=== PATIENT | female | born 1995 | race American Indian/Alaskan Native ===

== ENCOUNTER 2020-10-29 08:25 | Emergency (ER) | payer OTHER ==
--- NOTE | 2020-10-29 08:36 | Event Note ---
ED Screening Note ED Screening Note: 10 w preg vag bleeding- heavy abd cramps has no obgyn pos home preg test LMP 08/25 g2 This initial assessment/diagnostic orders/clinical plan/treatment(s) is/are subject to change based on patients health status, clinical progression and re- assessment by fellow clinical providers in the ED. Further treatment and workup at subsequent clinical providers discretion. Patient/guardian urged not to elope from the ED as their condition may be serious if not clinically assessed and managed. Initial orders include: ro ectopic/ab
[2020-10-29 09:07] VITALS: BP 126/56
--- NOTE | 2020-10-29 09:08 | Emergency Department Report ---
ED Female HPI - General Chief complaint: Vaginal Bleeding Stated complaint: VAGINAL BLEEDING; 9WKS Time Seen by Provider: 10/29/20 08:35 Source: patient Mode of arrival: Ambulatory Limitations: No Limitations - History of Present Illness Initial comments: SEE MSE NOTE 24 YO COMES TO ER APPROX 9 W PREG WITH VAG BLEED AND CRAMPING. NO CARE CURRENTLY SMOKING LMP 08/25 G2 VS STABLE IN TRIAGE. MD Complaint: vaginal bleeding -: Gradual, days(s) Worsens with: none Are you Now?: Yes Associated Symptoms: vaginal bleeding - Related Data Sexually active: Yes Allergies Allergy/AdvReac Type Severity Reaction Status Date / Time No Known Allergies Allergy Unverified 10/29/20 09:07 ED Review of Systems ROS: Stated complaint: VAGINAL BLEEDING; 9WKS Other details as noted in HPI Comment: All other systems reviewed and negative ED Past Medical Hx - Past Medical History Previous Medical History?: No - Surgical History Past Surgical History?: No - Family History Family history: no significant - Social History Smoking Status: Never Smoker Substance Use Type: None ED Physical Exam - General Limitations: No Limitations General appearance: alert, in no apparent distress - Head Head exam: Present: atraumatic, normocephalic - Eye Eye exam: Present: normal appearance - ENT ENT exam: Present: mucous membranes moist - Neck Neck exam: Present: normal inspection - Respiratory Respiratory exam: Present: normal lung sounds bilaterally. Absent: respiratory distress - Cardiovascular Cardiovascular Exam: Present: regular rate, normal rhythm. Absent: systolic murmur, diastolic murmur, rubs, gallop - GI/Abdominal GI/Abdominal exam: Present: soft, normal bowel sounds - Extremities Exam Extremities exam: Present: normal inspection - Back Exam Back exam: Present: normal inspection - Neurological Exam Neurological exam: Present: alert, oriented X3 - Psychiatric Psychiatric exam: Present: normal affect, normal mood - Skin Skin exam: Present: warm, dry, intact, normal color. Absent: rash ED Course Vital Signs 10/29/20 09:05 Temperature 98.9 F Pulse Rate 77 Respiratory 16 Rate Blood Pressure 126/56 [Right] O2 Sat by Pulse 98 Oximetry ED Medical Decision Making - Lab Data Result diagrams: 10/29/20 11:13 10/29/20 11:13 - Radiology Data Radiology results: report reviewed, image reviewed NOTED FINDINGS - Medical Decision Making Lab Results 10/29/20 10/29/20 10/29/20 Range/Units 11:13 11:13 11:13 WBC 4.7 (4.5-11.0) K/mm3 RBC 4.30 (3.65-5.03) M/mm3 Hgb 13.0 (10.1-14.3) gm/dl Hct 38.5 (30.3-42.9) % MCV 90 (79-97) fl MCH 30 (28-32) pg MCHC 34 (30-34) % RDW 13.5 (13.2-15.2) % Plt Count 242 (140-440) K/mm3 Sodium 138 (137-145) mmol/L Potassium 3.7 (3.6-5.0) mmol/L Chloride 102.1 (98-107) mmol/L Carbon Dioxide 29 (22-30) mmol/L Anion Gap 11 mmol/L BUN 11 (7-17) mg/dL Creatinine 0.6 (0.6-1.2) mg/dL Estimated GFR > 60 ml/min BUN/Creatinine Ratio 18 % Glucose 88 (65-100) mg/dL Calcium 9.1 (8.4-10.2) mg/dL HCG, Quant 1822 H (0-4) mIU/mL Urine Color (Yellow) Urine Turbidity (Clear) Urine pH (5.0-7.0) Ur Specific Century (1.003-1.030) Urine Protein (Negative) mg/dL Urine Glucose (UA) (Negative) mg/dL Urine Ketones (Negative) mg/dL Urine Blood (Negative) Urine Nitrite (Negative) Urine Bilirubin (Negative) Urine Urobilinogen (<2.0) mg/dL Ur Leukocyte Esterase (Negative) Urine WBC (Auto) (0.0-6.0) /HPF Urine RBC (Auto) (0.0-6.0) /HPF U Epithel Cells (Auto) (0-13.0) /HPF Urine Bacteria (Auto) (Negative) /HPF Blood Type Ord Rhogam Gestat Weeks WEEKS 10/29/20 10/29/20 Range/Units 11:13 Unknown WBC (4.5-11.0) K/mm3 RBC (3.65-5.03) M/mm3 Hgb (10.1-14.3) gm/dl Hct (30.3-42.9) % MCV (79-97) fl MCH (28-32) pg MCHC (30-34) % RDW (13.2-15.2) % Plt Count (140-440) K/mm3 Sodium (137-145) mmol/L Potassium (3.6-5.0) mmol/L Chloride (98-107) mmol/L Carbon Dioxide (22-30) mmol/L Anion Gap mmol/L BUN (7-17) mg/dL Creatinine (0.6-1.2) mg/dL Estimated GFR ml/min BUN/Creatinine Ratio % Glucose (65-100) mg/dL Calcium (8.4-10.2) mg/dL HCG, Quant (0-4) mIU/mL Urine Color Yellow (Yellow) Urine Turbidity Clear (Clear) Urine pH 6.0 (5.0-7.0) Ur Specific Century 1.012 (1.003-1.030) Urine Protein <15 mg/dl (Negative) mg/dL Urine Glucose (UA) Neg (Negative) mg/dL Urine Ketones Neg (Negative) mg/dL Urine Blood Mod (Negative) Urine Nitrite Neg (Negative) Urine Bilirubin Neg (Negative) Urine Urobilinogen < 2.0 (<2.0) mg/dL Ur Leukocyte Esterase Neg (Negative) Urine WBC (Auto) < 1.0 (0.0-6.0) /HPF Urine RBC (Auto) 1.0 (0.0-6.0) /HPF U Epithel Cells (Auto) 2.0 (0-13.0) /HPF Urine Bacteria (Auto) 1+ (Negative) /HPF Blood Type O POSITIVE Ord Rhogam Gestat Weeks Rh pos WEEKS Vital Signs 10/29/20 09:05 Temperature 98.9 F Pulse Rate 77 Respiratory 16 Rate Blood Pressure 126/56 [Right] O2 Sat by Pulse 98 Oximetry US NOTED UA NOTED RH POS HCG NOTED LONG DISCUSSION WITH PT REGARDING FINDINGS OF TODAYS WORK UP. SHE UNDERSTANDS SHE NEEDS TO BE ON PELVIC REST AND WILL NEED TO SEE OBGYN IN 48 HOURS FOR RECHECK. DC HOME WITH FAMILY - Differential Diagnosis ro ectopic/ ro ab Critical care attestation.: If time is entered above; I have spent that time in minutes in the direct care of this critically ill patient, excluding procedure time. ED Disposition Clinical Impression: Vaginal bleeding affecting early Disposition: DC-01 TO HOME OR SELFCARE Is pt being admited?: No Does the pt Need Aspirin: No Condition: Stable Instructions: Vaginal Bleeding During , First Trimester Additional Instructions: PELVIC REST FOLLOW UP WITH OBGYN IN 48 HOURS FOR RECHECK REFERRAL BELOW DIET TOLERATED REST HYDRATE WELL WITH WATER TYLENOL FOR PAIN Referrals: ENOCH TREVIÑO MD [Staff Physician] - 3-5 Days Forms: Work/School Release Form(ED) Time of Disposition: 11:29
[2020-10-29 10:51] LABS: Bacteria,Urine 1+ /HPF (Negative); Bilirubin,Urine NEG (Negative); Blood,Urine MOD (Negative); Color,Urine Yellow (Yellow); Protein,Urine <15 mg/dL mg/dL (Negative); Urobilinogen,Urine < 2.0 mg/dL (<2.0); WBC,Urine < 1.0 /HPF (0.0-6.0)
--- NOTE | 2020-10-29 10:52 | Ultrasound Report ---
FIRSTTRIMESTER OBSTETRIC ULTRASOUND ULTRASOUND OB TRANSVAGINAL HISTORY: Vaginal bleeding during COMPARISON: None. TECHNIQUE: Routine transabdominal and transvaginal OB ultrasound performed. FINDINGS: The uterus is anteverted and measures 8.2 x 5.6 x 6.6 cm. No uterine mass. The cervix is unremarkable . There appears to be 2 tiny gestational sacs within the endometrial canal. Gestational sac A appears to have a small pole measuring 5.9 mm which correlates with a 6 week 3 day . No convincing yolk sac or heart rate is detected at this time. Gestational sac B appears to be empty with diameter measuring 7.5 mm which correlates with a 5 week 4 day . No pole or yolk sac is detected at this time. The right ovary measures 3.5 x 1.9 x 1.9 cm. The left ovary measures 3.2 x 1.2 x 1.7 cm. 1.1 cm hypoe choic area in the right ovary probably represents a corpus luteum cyst. No subchorionic hemorrhage or pelvic fluid collection. IMPRESSION There appears to be an early twin gestation. Gestational sac A appears to contain a small pole but no convincing heart rate is demonstrated at this time. Gestational sac B is empty with no e vidence for pole at this time. This could represent a very early twin gestation. demise a nd blighted ovum cannot be entirely excluded. Close interval follow-up and quantitative hCG levels is recommended. Signer Name: Bo Aldridge Jr, MD Signed: 10/29/2020 10:47 AM Workstation Name: [id number]
[2020-10-29 11:56] LABS: Hematocrit 38.5 % (30.3-42.9); Mean Corpuscular HGB Conc 34 % (30-34); Mean Corpuscular Volume 90 fl (79-97); Red Cell Distribution Width 13.5 % (13.2-15.2)
[2020-10-29 12:17] LABS: Blood Urea Nitrogen 11 mg/dL (7-17); Calcium 9.1 mg/dL (8.4-10.2); Hemolysis Index 0
[2020-10-29 12:19] LABS: BUN/Creatinine Ratio 18
[2020-10-29 12:25] LABS: Platelet Count 242 K/mm3 (140-440)
== END 2020-10-29 12:30 | disposition home or self-care (01) ==
LOC: ED 08:25
DX: O20.8 Other hemorrhage in early pregnancy (principal); Z3A.01 Less than 8 weeks gestation of pregnancy
CPT/HCPCS: 36415; 76801; 76802; 76817; 80048; 81001; 84702; 85027; 86900; 86901

== ENCOUNTER 2020-11-07 05:52 | Day surgery (SDC) | payer OTHER ==
--- NOTE | 2020-11-06 21:10 | History and Physical Report ---
History of Present Illness Date of examination: 11/07/20 Chief complaint: Dysfunctional Uterine Bleeding, Retained Products of Conception History of present illness: Pt is a 24 year old female who presents for surgical management of retained products of conception noted on ultrasound after spontaneous last week. Past History Past Medical History: no pertinent history Past Surgical History: no surgical history Family/Genetic History: none Social history: no significant social history - Obstetrical History : 2 Para: 1 Hx # Term Pregnancies: 0 Number of Pregnancies: 1 Spontaneous Abortions: 0 Induced : 0 Number of Living Children: 1 Medications and Allergies Allergies Allergy/AdvReac Type Severity Reaction Status Date / Time No Known Allergies Allergy Unverified 11/06/20 13:11 Home Medications Medication Instructions Recorded Confirmed Last Taken Type No Known Home Medications [No 11/06/20 11/06/20 Unknown History Reported Home Medications] Review of Systems All systems: negative - Physical Exam Breasts: Positive: deferred Abdomen: Positive: soft Extremities: Positive: normal Results All other labs normal. Assessment and Plan A: Retained Products of Conception after Spontaneous P: Proceed with suction dilation and curettage and other indicated procedures
[2020-11-07] MEDS ORDERED: BACTERIOSTATIC SODIUM CHLORIDE 0.9% 30 ML VIAL INFILTRATI ONE (05:54)
[2020-11-07] MEDS ORDERED: DOXYCYCLINE HYCLATE 100 MG in SODIUM CHLORIDE 0.9% 250ML 250 ML IV ONE (06:00)
[2020-11-07] MEDS ORDERED: miSOPROStol 200 MCG TAB PR ONE ×2 (06:00→08:05)
[2020-11-07] MEDS ORDERED: METHYLERGONOVINE MALEATE 0.2 MG/ML VIAL IM ONE ×2 (06:00→08:06)
[2020-11-07 06:50] LABS: Hematocrit 36.1 % (30.3-42.9); Hemoglobin 12.2 gm/dl (10.1-14.3); Mean Corpuscular HGB Conc 34 % (30-34); Mean Corpuscular Volume 89 fl (79-97); Platelet Count 229 K/mm3 (140-440); Red Blood Count 4.07 M/mm3 (3.65-5.03)
[2020-11-07] MEDS ORDERED: HYDROmorphone 1 MG/1 ML INJ ONE (07:14)
[2020-11-07] MEDS ORDERED: propofoL 200 MG/20 ML VIAL IV ONE (07:14)
[2020-11-07] MEDS ORDERED: LIDOCAINE MPF (2%) 20 MG/1 ML VIAL 5 ML ONE (07:14)
[2020-11-07] MEDS ORDERED: HYDROmorphone 1 MG/1 ML INJ IV PRN ×2 (07:16)
[2020-11-07] MEDS ORDERED: ONDANSETRON 4 MG/2 ML INJ IV PRN (07:16)
--- NOTE | 2020-11-07 07:17 | Anesthesia Day of Surgery ---
Anesthesia Day of Surgery - Day of Surgery Patient Examined: Yes Patient H&P Reviewed: Yes Patient is NPO: Yes
--- NOTE | 2020-11-07 07:18 | Anesthesia Consultation ---
Anesthesia Consult and Med Hx Date of service: 11/07/20 - Airway Anesthetic Teeth Evaluation: Chipped ROM Head & Neck: Adequate Mental/Hyoid Distance: Adequate Mallampati Class: Class II Intubation Access Assessment: Good - Pre-Operative Health Status ASA Pre-Surgery Classification: ASA1 Proposed Anesthetic Plan: General - Cardiovascular System Hx Heart Murmur: Yes ("Innocent") - Central Nervous System Hx Psychiatric Problems: No - Hematic Hx Sickle Cell Disease: Yes (Trait only) - Other Systems Hx Cancer: No
[2020-11-07] MEDS ORDERED: LACTATED RINGERS 1,000 ML IV SCH (07:30)
[2020-11-07] MEDS ORDERED: SILVER NITRATE APPLICATOR 1 EA TP ONE ×2 (08:00→08:14)
[2020-11-07] MEDS ORDERED: MIDAZOLAM 2 MG/2 ML INJ IV NR (08:00)
[2020-11-07] MEDS ORDERED: dexAMETHasone 20 MG/5 ML VIAL ONE (08:05)
[2020-11-07] MEDS ORDERED: KETOROLAC 30 MG/1 ML INJ ONE (08:05)
[2020-11-07] MEDS ORDERED: SODIUM CHLORIDE 0.9% IRR 1,500 ML BOTTLE IR ONE (08:06)
[2020-11-07] MEDS ORDERED: ONDANSETRON 4 MG/2 ML INJ ONE (08:06)
--- NOTE | 2020-11-07 08:22 | Operative Report ---
Operative Report Operative Report: Date of procedure: November 07, 2020 Preoperative diagnosis: Retained Products of Conception Postoperative diagnosis: Same Procedure: Suction Dilation and Curettage Surgeon: Daphney Ferrsi MD Anesthesia: General with LMA Findings: 1) Small anteverted uterus with closed cervix EBL: 100 mL Urine output: 100 mL, clear, prior to procedure Specimens: Products of conception to pathology Drains: None Complications: None. Counts correct x 2 Medications: Methergine 0.2 mg IM and Misoprostol 800 mcg per rectum Disposition: Stable to PACU Indication for procedure: Pt is a 24 year old who presents for surgical management of retained products of conception after spontaneous . Procedure in detail: After the risks, benefits, alternatives and complications were explained to the patient she gave informed consent for the procedure. She was subsequently taken to the operating room with her IV noted to be running well. She was placed in the dorsal supine position and SCDs were noted to be in place and functioning. General anesthesia was then induced without difficulty. She was then placed in the dorsal lithotomy position and prepped and draped in a normal sterile fashion. A timeout was performed. Exam under anesthesia yielded a small anteverted uterus. The bladder was emptied using a red rubber catheter yielding 100 mL of clear urine. A bi-valve speculum was placed into the vagina for visualization of the cervix. A single-tooth tenaculum was placed on the anterior lip of the cervix. The uterus was gently sounded to 7 cm. The cervix was serially dilated to a #21 Syed dilator. A number 7 rigid suction curette was used to evacuate the uterine cavity. A sharp curettage was done and noted to be gritty x 4 quadrants. A dose of Methergine 0.2 mg IM was given. The single tooth tenaculum was removed from the cervix. Silver nitrate was used to obtain hemostasis of tenaculum puncture sites. All instruments were then removed from the vagina atraumatically. Misoprostol 800 mcg was placed per rectum. At the time the procedure was ended. The patient was placed into the dorsal supine position and extubated without difficulty. She was then taken to the PACU in stable condition. All counts were correct x 2.
--- NOTE | 2020-11-07 08:22 | Short Stay Summary ---
Short Stay Documentation Date of service: 11/07/20 - History H&P: dictated Social history: no significant social history - Allergies and Medications Current Medications: Allergies No Known Allergies Allergy (Unverified 11/06/20 13:11) Home Medications Medication Instructions Recorded Confirmed Last Taken Type No Known Home Medications [No 11/06/20 11/06/20 Unknown History Reported Home Medications] Active Medications Hydromorphone HCl (Hydromorphone 1 Mg/1 Ml Inj) 0.25 mg IV Q10MIN PRN PRN Reason: Pain, Moderate (4-6) Stop: 11/07/20 23:00 Hydromorphone HCl (Hydromorphone 1 Mg/1 Ml Inj) 0.5 mg IV Q10MIN PRN PRN Reason: Pain , Severe (7-10) Stop: 11/07/20 23:00 Lactated Ringer's (Lactated Ringers) 1,000 mls @ 125 mls/hr IV DIRECT NINO Midazolam HCl (Midazolam 2 Mg/2 Ml Inj) 2 mg IV PREOP NR Stop: 11/07/20 23:59 Ondansetron HCl (Ondansetron 4 Mg/2 Ml Inj) 4 mg IV ONCE PRN PRN Reason: Nausea And Vomiting Stop: 11/07/20 23:00 - Physical exam Breasts: deferred - Brief post op/procedure progress note Date of procedure: 11/07/20 Pre-op diagnosis: Retained Products of Conception Post-op diagnosis: same Procedure: Suction Dilation and Curettage Anesthesia: GETA (with LMA ) Findings: 1) Small anteverted uterus with closed cervix Surgeon: ZHOU FERRIS Estimated blood loss: 50-100ml (100 mL) Pathology: list (products of conception) Specimen disposition: to lab Condition: stable - Hospital course Hospital course: Pt underwent suction dilation and curettage which she tolerated well. She was observed in the PACU until she met discharge criteria. She will follow up in the office in [address] Ferris. - Disposition Condition at discharge: Stable Disposition: TO HOME OR SELFCARE - Discharge Diagnoses (1) Retained products of conception after miscarriage Status: Acute Short Stay Discharge Plan Activity: other (Nothing in vagina, no tub baths, no intercourse for 4 wks ) Weight Bearing Status: Full Weight Bearing Diet: regular Follow up with: PRIMARY CARE, [Primary Care Provider] - 7 Days ZHOU FERRIS MD [Staff Physician] - 7 Days Prescriptions: Ibuprofen Oral Liqd [Motrin Oral Liq 100 mg/5 ml] 600 mg PO QID PRN #1 bottle PRN Reason: Pain, Moderate (4-6) oxyCODONE /ACETAMINOPHEN [Percocet 5/325] 1 tab PO Q6HR PRN #20 tablet PRN Reason: Pain DOXYCYCLINE Hyclate [Vibramycin CAP] 100 mg PO Q12HR #14 capsule
[2020-11-07 09:39] VITALS: BP 124/75
--- NOTE | 2020-11-07 10:08 | Post Anesthesia Evaluation ---
- Post Anesthesia Evaluation Patient Participated: Yes Airway Patent: Yes Stable Respiratory Function: Yes Nausea/Vomiting: No Temp > 96.8F: Yes Pain Manageable: Yes Adequeate Hydration: Yes Anesthesia Complications: No Block Receding Appropriately: Not Applicable Patient on Ventilator: No
== END 2020-11-07 09:55 | disposition home or self-care (01) ==
LOC: OR 05:52
PROVIDERS: ATTEND Obstetrics & Gynecology
DX: O02.89 Other abnormal products of conception (principal); O03.4 Incomplete spontaneous abortion without complication; Z79.899 Other long term (current) drug therapy; Z98.890 Other specified postprocedural states; Z86.2 Personal history of diseases of the blood and blood-forming organs and certain disorders involving the immune mechanism
CPT/HCPCS: 36415; 59812; 84702; 85027; 86850; 86900; 86901; 88305; J1100; J1170; J1885; J2210; J2250; J2405; J2704; J7050; J7120

== ENCOUNTER 2021-03-21 10:21 | Emergency (ER) | payer OTHER ==
[2021-03-21] MEDS ORDERED: SODIUM CHLORIDE 0.9% 1000 ML 1,000 ML IV ONE (10:46)
[2021-03-21] MEDS ORDERED: FAMOTIDINE 20 MG/2 ML INJ IV ONE (10:46)
[2021-03-21] MEDS ORDERED: DICYCLOMINE 20 MG/2 ML INJ IM ONE (10:46)
[2021-03-21] MEDS ORDERED: ONDANSETRON 4 MG/2 ML INJ IV ONE (10:46)
--- NOTE | 2021-03-21 10:48 | Event Note ---
ED Screening Note Date of service: 03/21/21 Time: 10:46 ED Screening Note: Patient is a A0 25-year-old -[place] female with no past medical history who presents to the ED with complaint of acute onset persistent intractable nausea and vomiting with diffuse abdominal pain for the last 8 hours after heavy alcohol consumption 24 hours ago. Patient states that she cannot remember how much alcohol she consumed but developed acute onset persistent intractable nausea and vomiting with abdominal pain about 8 hours ago. Patient states that she has not been able to keep anything down including fluids because of worsening nausea and vomiting. Patient denies diarrhea, dizziness, syncope, chest pain, shortness of breath, fever, chills, vaginal bleeding, dysuria, urinary frequency and urgency, change in vision or hemoptysis and hematemesis. Physical exam is positive for mild diffuse abdominal tenderness, no guarding or rebound and normal bowel sounds. This initial assessment/diagnostic orders/clinical plan/treatment(s) is/are subject to change based on patients health status, clinical progression and re- assessment by fellow clinical providers in the ED. Further treatment and workup at subsequent clinical providers discretion. Patient/guardian urged not to elope from the ED as their condition may be serious if not clinically assessed and managed. Initial orders include: CBC, CMP, UA, hCG serum, lipase
[2021-03-21 11:26] LABS: Bilirubin,Urine NEG (Negative); Blood,Urine NEG (Negative); Color,Urine Yellow (Yellow); Protein,Urine <15 mg/dL mg/dL (Negative); Urobilinogen,Urine < 2.0 mg/dL (<2.0); WBC,Urine < 1.0 /HPF (0.0-6.0)
[2021-03-21 12:04] LABS: Basophils # (Auto) 0.1 K/mm3 (0.0-0.1); Basophils % (Auto) 0.7 % (0.0-1.8); Eosinophils % (Auto) 0.2 % (0.0-4.3); Hematocrit 40.7 % (30.3-42.9); Hemoglobin 13.9 gm/dl (10.1-14.3); Lymphocytes # (Auto) 0.8 K/mm3 (1.2-5.4); Lymphocytes % (Auto) 9.5 % (13.4-35.0); Mean Corpuscular HGB Conc 34 % (30-34); Mean Corpuscular Volume 89 fl (79-97); Monocytes # (Auto) 0.3 K/mm3 (0.0-0.8); Monocytes % (Auto) 3.6 % (0.0-7.3); Platelet Count 254 K/mm3 (140-440); Red Cell Distribution Width 13.9 % (13.2-15.2)
[2021-03-21 12:27] LABS: Alanine Aminotransferase 12 units/L (7-56); Albumin 4.7 g/dL (3.9-5); Blood Urea Nitrogen 8 mg/dL (7-17); Calcium 9.5 mg/dL (8.4-10.2); Hemolysis Index 3
[2021-03-21 12:28] LABS: BUN/Creatinine Ratio 11
--- NOTE | 2021-03-21 13:50 | Emergency Department Report ---
ED N/V/D HPI - General Chief complaint: Abdominal Pain Stated complaint: NAUSEA/VOMITTING/HEADACHE Source: patient Mode of arrival: Ambulatory Limitations: No Limitations - History of Present Illness Initial comments: Patient is a A1 25-year-old -Burkin[place] female with no past medical history who presents to the ED with complaint of acute onset persistent intractable nausea and vomiting with diffuse abdominal pain for the last 8 hours after heavy alcohol consumption 24 hours ago. Patient states that she cannot remember how much alcohol she consumed but developed acute onset persistent intractable nausea and vomiting with abdominal pain about 8 hours ago. Patient states that she has not been able to keep anything down including fluids because of worsening nausea and vomiting. Patient denies diarrhea, dizziness, syncope, chest pain, shortness of breath, fever, chills, vaginal bleeding, dysuria, urinary frequency and urgency, change in vision or hemoptysis and hematemesis. Physical exam is positive for mild diffuse abdominal tenderness, no guarding or rebound and normal bowel sounds. MD complaint: nausea, vomiting, abdominal pain -: Sudden, hour(s) (8) Description of Vomiting: food contents, watery Associated Abdominal Pain: Yes (Diffuse) Location: diffuse Radiation: none Severity: severe Pain Scale: 7 Quality: cramping, aching Consistency: constant Improves with: none Worsens with: eating, vomiting Context: possible food poisoning, alcohol abuse Associated Symptoms: denies other symptoms, loss of appetite, malaise, nausea/vomiting. denies: myalgias, chest pain, cough, diaphoresis, fever/chil ls, headaches, rash, dysuria, shortness of breath, syncope, other - Related Data Previous Rx's Medication Instructions Recorded Last Taken Type DOXYCYCLINE Hyclate [Vibramycin 100 mg PO Q12HR #14 capsule 11/07/20 Unknown Rx CAP] Ibuprofen Oral Liqd [Motrin Oral 600 mg PO QID PRN #1 bottle 11/07/20 Unknown Rx Liq 100 mg/5 ml] oxyCODONE /ACETAMINOPHEN [Percocet 1 tab PO Q6HR PRN #20 tablet 11/07/20 Unknown Rx 5/325] Dicyclomine [Bentyl] 20 mg PO Q6H PRN #30 tablet 03/21/21 Unknown Rx Famotidine [Pepcid] 20 mg PO BID #40 tablet 03/21/21 Unknown Rx Ondansetron [Zofran Odt] 4 mg PO Q6HR PRN #20 tab.rapdis 03/21/21 Unknown Rx Allergies Allergy/AdvReac Type Severity Reaction Status Date / Time No Known Allergies Allergy Unverified 11/06/20 13:11 ED Review of Systems ROS: Stated complaint: NAUSEA/VOMITTING/HEADACHE Other details as noted in HPI Constitutional: denies: chills, fever Eyes: denies: eye pain, eye discharge, vision change ENT: denies: ear pain, throat pain Respiratory: denies: cough, shortness of breath, wheezing Cardiovascular: denies: chest pain, palpitations Endocrine: no symptoms reported Gastrointestinal: abdominal pain (Diffuse), nausea, vomiting. denies: diarrhea Genitourinary: denies: urgency, dysuria, discharge Musculoskeletal: denies: back pain, joint swelling, arthralgia Skin: denies: rash, lesions Neurological: denies: headache, weakness, paresthesias Psychiatric: denies: anxiety, depression Hematological/Lymphatic: denies: easy bleeding, easy bruising ED Past Medical Hx - Past Medical History Hx Sickle Cell Disease: Yes (Trait only) Additional medical history: heart murmur - Surgical History Additional Surgical History: D&C - Social History Smoking Status: Never Smoker Substance Use Type: Alcohol, Marijuana - Medications Home Medications: Home Medications Medication Instructions Recorded Confirmed Last Taken Type DOXYCYCLINE Hyclate [Vibramycin 100 mg PO Q12HR #14 capsule 11/07/20 Unknown Rx CAP] Ibuprofen Oral Liqd [Motrin Oral 600 mg PO QID PRN #1 bottle 11/07/20 Unknown Rx Liq 100 mg/5 ml] oxyCODONE /ACETAMINOPHEN [Percocet 1 tab PO Q6HR PRN #20 tablet 11/07/20 Unknown Rx 5/325] Dicyclomine [Bentyl] 20 mg PO Q6H PRN #30 tablet 03/21/21 Unknown Rx Famotidine [Pepcid] 20 mg PO BID #40 tablet 03/21/21 Unknown Rx Ondansetron [Zofran Odt] 4 mg PO Q6HR PRN #20 tab.rapdis 03/21/21 Unknown Rx ED Physical Exam - General Limitations: No Limitations General appearance: alert, in no apparent distress - Head Head exam: Present: atraumatic, normocephalic, normal inspection - Eye Eye exam: Present: normal appearance, PERRL, EOMI Pupils: Present: normal accommodation - ENT ENT exam: Present: normal exam, normal orophraynx, mucous membranes moist, TM's normal bilaterally, normal external ear exam - Neck Neck exam: Present: normal inspection, full ROM - Respiratory Respiratory exam: Present: normal lung sounds bilaterally. Absent: respiratory distress, wheezes, rales, stridor, chest wall tenderness, accessory muscle use, decreased breath sounds, prolonged expiratory - Cardiovascular Cardiovascular Exam: Present: regular rate, normal rhythm, normal heart sounds. Absent: systolic murmur, diastolic murmur, rubs, gallop - GI/Abdominal GI/Abdominal exam: Present: soft, tenderness (Palpable mild diffuse abdominal tenderness), normal bowel sounds. Absent: distended, guarding, rebound, hype ractive bowel sounds, hypoactive bowel sounds - Extremities Exam Extremities exam: Present: normal inspection, full ROM, normal capillary refill - Back Exam Back exam: Present: normal inspection, full ROM. Absent: tenderness, CVA tenderness (R), CVA tenderness (L), muscle spasm, paraspinal tenderness, vertebral tenderness - Neurological Exam Neurological exam: Present: alert, oriented X3, CN II-XII intact, normal gait, reflexes normal - Psychiatric Psychiatric exam: Present: normal affect, normal mood, anxious - Skin Skin exam: Present: warm, dry, intact, normal color. Absent: rash ED Course Vital Signs 03/21/21 10:39 Temperature 98.6 F Pulse Rate 93 H Respiratory 16 Rate Blood Pressure 133/62 O2 Sat by Pulse 99 Oximetry ED Medical Decision Making - Lab Data Result diagrams: 03/21/21 11:30 03/21/21 11:30 - Medical Decision Making This is a A1 25-year-old -Bur[place] female with no past medical history who presents to the ED with complaint of acute onset persistent intractable nausea and vomiting with diffuse abdominal pain for the last 8 hours after heavy alcohol consumption 24 hours ago. Patient states that she cannot remember how much alcohol she consumed but developed acute onset persistent intr actable nausea and vomiting with abdominal pain about 8 hours ago. Patient states that she has not been able to keep anything down including fluids because of worsening nausea and vomiting. In the ED, patient is alert and oriented x3 and is not in any distress. Lab test results were reviewed and are all nonactionable. Patient was treated in the ED with antiemetics, antacids and antispasmodics as well as normal saline 1 L IV bolus x1. On reevaluation, patient's symptoms resolved, patient felt better and patient passed oral fluid challenge in the ED with no nausea or vomiting. Patient was therefore discharged home on antiemetics, antacids and also given a prescription for antispasmodic medications. Patient was advised to maintain a clear liquid diet for 12 to 24 hours, drink plenty of fluids and take medication as needed for nausea and vomiting. Patient was advised to follow-up with her primary care physician in 3 to 5 days for reevaluation or return to the ED immediately if symptoms get worse. - Differential Diagnosis Gastroenteritis; gastritis; dehydration; viral syndrome; alcohol abuse Critical care attestation.: If time is entered above; I have spent that time in minutes in the direct care of this critically ill patient, excluding procedure time. ED Disposition Clinical Impression: Nausea and vomiting in adult patient Alcoholic gastritis without bleeding Qualifiers: Chronicity: acute Qualified Code(s): K29.20 - Alcoholic gastritis without bleeding Disposition: DC-01 TO HOME OR SELFCARE Is pt being admited?: No Does the pt Need Aspirin: No Condition: Stable Instructions: Abdominal Pain (ED), Gastritis, Adult, [id number], Nausea and Vomiting, Adult, [id number] Additional Instructions: All lab test results were reviewed and are all nonactionable. Therefore maintain a clear liquid diet for 12 to 24 hours, drink plenty of fluids, take medication as needed for nausea and vomiting and follow-up with your primary care physician in 3 to 5 days for reevaluation. Return to the ED immediately if symptoms get worse. Prescriptions: Dicyclomine [Bentyl] 20 mg PO Q6H PRN #30 tablet PRN Reason: Abdominal pain Famotidine [Pepcid] 20 mg PO BID #40 tablet Ondansetron [Zofran Odt] 4 mg PO Q6HR PRN #20 tab.rapdis PRN Reason: Nausea Referrals: [facility] [Provider Group] - 3-5 Days Forms: Work/School Release Form(ED) Time of Disposition: 13:49 Print Language: SURINAMESE
[2021-03-21 14:33] VITALS: BP 128/76
== END 2021-03-21 14:34 | disposition home or self-care (01) ==
LOC: ED 10:21
DX: K29.00 Acute gastritis without bleeding (principal); F12.90 Cannabis use, unspecified, uncomplicated; Z72.89 Other problems related to lifestyle; Z79.899 Other long term (current) drug therapy
CPT/HCPCS: 36415; 80053; 81001; 83690; 84703; 85025; 96361; 96372; 96374; 96375; 99283; J0500; J2405; J7030

== ENCOUNTER 2021-12-28 09:34 | Emergency (ER) | payer OTHER ==
--- NOTE | 2021-12-28 10:44 | Emergency Department Report ---
ED Abdominal Pain HPI - General Chief Complaint: Abdominal Pain Stated Complaint: ABD PAIN/ UNKNOWN WKS Time Seen by Provider: 12/28/21 10:22 Source: patient Mode of arrival: Ambulatory Limitations: No Limitations - History of Present Illness Initial Comments: Patient is 26 years old female 3 para 1 with 1 miscarriage. Patient thinks that she is 4 weeks . Patient stated that she did 2 urine test and came back positive. Patient presented to the ER complaining of lower abdominal pain, crampy in nature with vaginal spotting. Patient denied any nausea or vomiting. No chest pain or shortness of breath. No dizziness. MD Complaint: abdominal pain Severity scale (0 -10): 5 - Related Data Previous Rx's Medication Instructions Recorded Last Taken Type DOXYCYCLINE Hyclate [Vibramycin 100 mg PO Q12HR #14 capsule 11/07/20 Unknown Rx CAP] Ibuprofen Oral Liqd [Motrin Oral 600 mg PO QID PRN #1 bottle 11/07/20 Unknown Rx Liq 100 mg/5 ml] oxyCODONE /ACETAMINOPHEN [Percocet 1 tab PO Q6HR PRN #20 tablet 11/07/20 Unknown Rx 5/325] Dicyclomine [Bentyl] 20 mg PO Q6H PRN #30 tablet 03/21/21 Unknown Rx Famotidine [Pepcid] 20 mg PO BID #40 tablet 03/21/21 Unknown Rx Ondansetron [Zofran Odt] 4 mg PO Q6HR PRN #20 tab.rapdis 03/21/21 Unknown Rx Ondansetron [Zofran Odt] 4 mg PO Q8HR PRN #14 tab.rapdis 12/28/21 Unknown Rx Allergies Allergy/AdvReac Type Severity Reaction Status Date / Time No Known Allergies Allergy Unverified 11/06/20 13:11 ED Review of Systems ROS: Stated complaint: ABD PAIN/ UNKNOWN WKS Other details as noted in HPI Comment: All other systems reviewed and negative Constitutional: denies: chills, fever Respiratory: denies: cough, shortness of breath, SOB with exertion, SOB at rest Cardiovascular: denies: chest pain, palpitations, dyspnea on exertion Gastrointestinal: abdominal pain. denies: nausea, vomiting, diarrhea, constipation, hematemesis, melena Genitourinary: abnormal menses Musculoskeletal: denies: back pain Neurological: denies: headache, weakness, numbness, paresthesias, confusion, abnormal gait ED Past Medical Hx - Past Medical History Hx Sickle Cell Disease: Yes (Trait only) Additional medical history: heart murmur - Surgical History Additional Surgical History: D&C - Social History Smoking Status: Never Smoker Substance Use Type: None - Medications Home Medications: Home Medications Medication Instructions Recorded Confirmed Last Taken Type DOXYCYCLINE Hyclate [Vibramycin 100 mg PO Q12HR #14 capsule 11/07/20 Unknown Rx CAP] Ibuprofen Oral Liqd [Motrin Oral 600 mg PO QID PRN #1 bottle 11/07/20 Unknown Rx Liq 100 mg/5 ml] oxyCODONE /ACETAMINOPHEN [Percocet 1 tab PO Q6HR PRN #20 tablet 11/07/20 Unknow n Rx 5/325] Dicyclomine [Bentyl] 20 mg PO Q6H PRN #30 tablet 03/21/21 Unknown Rx Famotidine [Pepcid] 20 mg PO BID #40 tablet 03/21/21 Unknown Rx Ondansetron [Zofran Odt] 4 mg PO Q6HR PRN #20 tab.rapdis 03/21/21 Unknown Rx Ondansetron [Zofran Odt] 4 mg PO Q8HR PRN #14 tab.rapdis 12/28/21 Unknown Rx ED Physical Exam - General Limitations: No Limitations General appearance: alert, in no apparent distress - Head Head exam: Present: atraumatic, normocephalic, normal inspection - Eye Eye exam: Present: normal appearance - ENT ENT exam: Present: normal exam, normal orophraynx, mucous membranes moist - Neck Neck exam: Present: normal inspection, full ROM. Absent: tenderness, meningismus - Respiratory Respiratory exam: Present: normal lung sounds bilaterally - Cardiovascular Cardiovascular Exam: Present: regular rate, normal rhythm, normal heart sounds - GI/Abdominal GI/Abdominal exam: Present: soft, normal bowel sounds. Absent: distended, tenderness, guarding, rebound, rigid, organomegaly, mass, bruit, pulsatile mass, hernia - Extremities Exam Extremities exam: Present: normal inspection, full ROM, normal capillary refill. Absent: tenderness - Back Exam Back exam: Present: normal inspection, full ROM. Absent: CVA tenderness (R), CVA tenderness (L) - Neurological Exam Neurological exam: Present: alert, oriented X3, CN II-XII intact, normal gait, reflexes normal. Absent: motor sensory deficit - Psychiatric Psychiatric exam: Present: normal mood - Skin Skin exam: Present: warm, intact, normal color ED Course Vital Signs 12/28/21 12/28/21 09:42 10:33 Temperature 98.4 F 98.6 F Pulse Rate 65 89 Respiratory 18 20 Rate Blood Pressure 126/88 Blood Pressure 117/65 [Right] O2 Sat by Pulse 100 99 Oximetry ED Medical Decision Making - Lab Data Result diagrams: 12/28/21 11:08 12/28/21 11:07 - Radiology Data Radiology results: report reviewed - Medical Decision Making Patient is 26 years old female 3 para 1 with 1 miscarriage. Patient thinks that she is 4 weeks . Patient stated that she did 2 urine test and came back positive. Patient presented to the ER complaining of lower abdominal pain, crampy in nature with vaginal spotting. Patient denied any nausea or vomiting. No chest pain or shortness of breath. No dizziness. Labs reviewed and is unremarkable. Positive test. ultrasound showed viable intrauterine gestation at 6-week. No complication. I gave patient my [facility] to follow-up with in the next 2 to 3 days and patient also given prescription for Zofran and advised to return to the ER if she develop any new symptoms. Critical care attestation.: If time is entered above; I have spent that time in minutes in the direct care of this critically ill patient, excluding procedure time. ED Disposition Clinical Impression: Abdominal pain affecting , antepartum Disposition: 01 HOME / SELF CARE / HOMELESS Is pt being admited?: No Condition: Stable Instructions: Abdominal Pain During , [id number], Abdominal Pain (ED) Prescriptions: Ondansetron [Zofran Odt] 4 mg PO Q8HR PRN #14 tab.rapdis PRN Reason: Nausea And Vomiting Referrals: [facility] [Provider Group] - 3-5 Days
[2021-12-28 10:53] LABS: Bacteria,Urine 1+ /HPF (Negative); Bilirubin,Urine NEG (Negative); Blood,Urine NEG (Negative); Color,Urine Straw (Yellow); Protein,Urine <15 mg/dL mg/dL (Negative); Urobilinogen,Urine < 2.0 mg/dL (<2.0)
[2021-12-28 10:58] LABS: HCG Qualitative,Urine Positive (Negative)
[2021-12-28 12:14] LABS: Blood Urea Nitrogen 10 mg/dL (7-17); Calcium 9.2 mg/dL (8.4-10.2); Hemolysis Index 11
[2021-12-28 12:45] LABS: BUN/Creatinine Ratio 17
[2021-12-28 12:52] LABS: Eosinophils # (Auto) 0.1 K/mm3 (0.0-0.4); Eosinophils % (Auto) 2.1 % (0.0-4.3); Hematocrit 39.5 % (30.3-42.9); Lymphocytes # (Auto) 1.4 K/mm3 (1.2-5.4); Lymphocytes % (Auto) 24.1 % (13.4-35.0); Mean Corpuscular HGB Conc 33 % (30-34); Mean Corpuscular Volume 88 fl (79-97); Monocytes # (Auto) 0.6 K/mm3 (0.0-0.8); Monocytes % (Auto) 10.6 % (0.0-7.3); Red Blood Count 4.48 M/mm3 (3.65-5.03)
[2021-12-28 12:54] LABS: Basophils % (Auto) 0.8 % (0.0-1.8); Platelet Count 215 K/mm3 (140-440); Red Cell Distribution Width 13.5 % (13.2-15.2)
--- NOTE | 2021-12-28 14:35 | Ultrasound Report ---
ULTRASOUND OBSTETRIC INDICATION / CLINICAL INFORMATION: Abdominal pain . Clinical Gestational Age (GA) in weeks, days: 6, 1 TECHNIQUE: Transabdominal. COMPARISON: None available. FINDINGS: GESTATIONAL SAC: Well-defined oval shape and intrauterine in location. YOLK SAC: No significant abnormality. EMBRYO/FETUS: No significant abnormality. - [place]-Rump Length = 0.5 cm = 6, 1 weeks, days - Heart Rate, beats per minute (if present) = 104 ADNEXA: No significant abnormality. FREE FLUID: None. ADDITIONAL FINDINGS: None. IMPRESSION: 1. Single, living intrauterine with estimated sonographic age of 6, 0 weeks, days. h eart tones noted at 140 bpm Signer Name: Aidan Boateng DO Signed: 12/28/2021 2:31 PM Workstation Name: [id number]
[2021-12-28 17:02] VITALS: BP 120/80
== END 2021-12-28 16:55 | disposition home or self-care (01) ==
LOC: ED 09:34
DX: O26.891 Other specified pregnancy related conditions, first trimester (principal); R10.30 Lower abdominal pain, unspecified; Z3A.01 Less than 8 weeks gestation of pregnancy; Z79.899 Other long term (current) drug therapy
CPT/HCPCS: 36415; 76801; 80048; 81001; 81025; 84702; 85025; 86900; 86901; 99284